=== PATIENT | male | born 1975 | race Caucasian/White ===

== ENCOUNTER → 2023-07-05 | Outpatient (CLI) | payer OTHER ==
--- NOTE | 2023-07-05 12:34 | XR ---
EXAMINATION TYPE: XR foot complete RT DATE OF EXAM: 07/05/2023 COMPARISON: None HISTORY: Pain crush injury first digit TECHNIQUE: 3 view right foot FINDINGS: There is a fracture of the tuft of the great toe. No additional fractures are evident. Joint spaces are preserved. Soft tissues appear normal. IMPRESSION: 1. Transverse fracture distal tuft retail
== END | disposition home or self-care (01) ==
LOC: RADXRMAIN 11:58
PROVIDERS: ATTEND Emergency Medicine
DX: S97.111A Crushing injury of right great toe, initial encounter (principal); S92.421A Displaced fracture of distal phalanx of right great toe, initial encounter for closed fracture; W23.0XXA Caught, crushed, jammed, or pinched between moving objects, initial encounter